=== PATIENT | male | born 1950 | race Caucasian/White ===

== ENCOUNTER → 2017-08-21 | Outpatient (CLI) | payer MEDICARE | LOC: CFH 08:06 | PROVIDERS: ATTEND Psychiatry & Neurology Neurology | DX: I67.9 Cerebrovascular disease, unspecified (principal) | CPT/HCPCS: 70551 ==

== ENCOUNTER → 2020-04-19 | Outpatient (CLI) | payer MEDICARE ==
[~2020-04-19] MED LIST: REGADENOSON 0.4 MG/5 ML SYRINGE ONE
== END | disposition home or self-care (01) ==
LOC: CFH 08:54
PROVIDERS: ATTEND Internal Medicine Cardiovascular Disease
DX: I21.09 ST elevation (STEMI) myocardial infarction involving other coronary artery of anterior wall (principal); I25.5 Ischemic cardiomyopathy; I63.9 Cerebral infarction, unspecified; I25.10 Atherosclerotic heart disease of native coronary artery without angina pectoris; I10 Essential (primary) hypertension
CPT/HCPCS: 78452; 93017; A9502; J2785

== ENCOUNTER → 2020-04-25 | Outpatient (CLI) | payer MEDICARE | END | disposition home or self-care (01) | LOC: CVU 14:43 | PROVIDERS: ATTEND Internal Medicine Cardiovascular Disease | DX: I37.1 Nonrheumatic pulmonary valve insufficiency (principal); I10 Essential (primary) hypertension; I25.10 Atherosclerotic heart disease of native coronary artery without angina pectoris; I63.9 Cerebral infarction, unspecified | CPT/HCPCS: 93306 ==

== ENCOUNTER 2020-11-22 12:12 | Outpatient (CLI) | payer MEDICARE ==
[2020-11-22 12:40] LABS: MEAN CORPUSCULAR HEMOGLOBIN 23.3 pg (27.5-34.5); MEAN CORPUSCULAR HGB CONC 31.2 g/dL (33.2-36.2); MEAN PLATELET VOLUME 7.7 fL (7.4-10.4); PLATELET COUNT 371 x10^3/uL (130-400); RED BLOOD COUNT 3.55 x10^6/uL (4.38-5.82); RED CELL DISTRIBUTION WIDTH 23.6 % (9.4-14.8)
[2020-11-22 12:47] LABS: ALANINE AMINOTRANSFERASE 23 U/L (12-78); ALBUMIN 3.7 g/dL (3.4-5.0); ANION GAP 4 mmol/L (5-15); CALCIUM 8.7 mg/dL (8.5-10.1); CHLORIDE 109 mmol/L (98-107); CREATININE 1.14 mg/dL (0.7-1.3)
[2020-11-22 12:50] LABS: ALKALINE PHOSPHATASE 72 U/L (45-117); BILIRUBIN,TOTAL 0.5 mg/dL (0.2-1.0); TOTAL PROTEIN 6.8 g/dL (6.4-8.2)
[2020-11-22 14:23] LABS: MD NO
== END 2020-11-22 23:59 | disposition home or self-care (01) ==
LOC: LAB 12:12
PROVIDERS: ATTEND Internal Medicine Cardiovascular Disease
DX: E11.65 Type 2 diabetes mellitus with hyperglycemia (principal); E11.40 Type 2 diabetes mellitus with diabetic neuropathy, unspecified; E78.2 Mixed hyperlipidemia; G40.909 Epilepsy, unspecified, not intractable, without status epilepticus; I10 Essential (primary) hypertension; I25.10 Atherosclerotic heart disease of native coronary artery without angina pectoris; F10.10 Alcohol abuse, uncomplicated; F17.200 Nicotine dependence, unspecified, uncomplicated; F17.201 Nicotine dependence, unspecified, in remission
CPT/HCPCS: 36415; 80053; 85025

== ENCOUNTER → 2020-11-28 | Outpatient (CLI) | payer MEDICARE ==
[2020-11-28 11:29] LABS: ABSOLUTE RETICS # 0.055 x10^6/uL (0.5-1.5); RED BLOOD COUNT 3.94 x10^6/uL (4.38-5.82); RETICULOCYTE COUNT % 1.4 % (0.5-1.5)
[2020-11-28 12:05] LABS: FOLATE LEVEL 13.2 ng/mL (3.1-17.5)
[2020-12-02 14:41] LABS: OCCULT BLOOD NEGATIVE (NEGATIVE)
[2020-12-02 14:51] LABS: OCCULT BLOOD NEGATIVE (NEGATIVE)
== END | disposition home or self-care (01) ==
LOC: RAD 11:02
PROVIDERS: ATTEND Internal Medicine Gastroenterology
DX: D53.9 Nutritional anemia, unspecified (principal)
CPT/HCPCS: 36415; 74018; 82272; 82607; 82668; 82728; 82746; 82784; 83516; 83540; 83550; 85045

== ENCOUNTER 2020-11-30 13:42 | Outpatient (CLI) | payer MEDICARE | END 2020-11-30 23:59 | disposition home or self-care (01) | LOC: RAD 13:42 | PROVIDERS: ATTEND Internal Medicine Gastroenterology | DX: D53.9 Nutritional anemia, unspecified (principal) | CPT/HCPCS: 74018 ==

== ENCOUNTER 2020-12-02 13:16 | Outpatient (CLI) | payer MEDICARE | END 2020-12-02 23:59 | disposition home or self-care (01) | LOC: RAD 13:16 | PROVIDERS: ATTEND Internal Medicine Gastroenterology | DX: D53.9 Nutritional anemia, unspecified (principal) | CPT/HCPCS: 74018 ==

== ENCOUNTER → 2020-12-06 | Outpatient (CLI) | payer MEDICARE | END | disposition home or self-care (01) | LOC: RAD 13:21 | PROVIDERS: ATTEND Internal Medicine Gastroenterology | DX: M47.816 Spondylosis without myelopathy or radiculopathy, lumbar region (principal); M41.86 Other forms of scoliosis, lumbar region; D53.9 Nutritional anemia, unspecified; M85.88 Other specified disorders of bone density and structure, other site | CPT/HCPCS: 74018 ==

== ENCOUNTER → 2021-01-04 | Outpatient (CLI) | payer MEDICARE ==
[2021-01-04 10:37] LABS: BASOPHILS % (AUTO) 2 % (0-1); EOSINOPHILS % (AUTO) 7 % (1-7); LYMPHOCYTES % (AUTO) 29 % (22-44); MEAN CORPUSCULAR HGB CONC 31.3 g/dL (33.2-36.2); MEAN PLATELET VOLUME 7.3 fL (7.4-10.4); MONOCYTES % (AUTO) 9 % (2-9); NEUTROPHILS % (AUTO) 52 % (42-75); PLATELET COUNT 461 x10^3/uL (130-400); RED BLOOD COUNT 5.56 x10^6/uL (4.38-5.82); RED CELL DISTRIBUTION WIDTH 36.4 % (9.4-14.8)
[2021-01-04 11:03] LABS: ANISOCYTOSIS 2+; MD MORPH REVIEW ONLY
[2021-01-04 11:04] LABS: HYPOCHROMIA 1+; MICROCYTOSIS 1+; POLYCHROMASIA 1+; SCHISTOCYTES 1+; TARGET CELLS 1+
[2021-01-04 11:05] LABS: <PLATELET ESTIMATE> INCREASED; <PLT MORPHOLOGY> NORMAL PLT MORPH; ECHINOCYTES 1+; HOWELL-JOLLY BODIES 1+; SPHEROCYTES 1+
== END | disposition home or self-care (01) ==
LOC: LAB 10:22
PROVIDERS: ATTEND Internal Medicine Gastroenterology
DX: D53.9 Nutritional anemia, unspecified (principal); D50.9 Iron deficiency anemia, unspecified
CPT/HCPCS: 36415; 82728; 83540; 83550; 85025

== ENCOUNTER 2021-03-18 06:32 | Day surgery (SDC) | payer MEDICARE ==
[~2021-03-18] VITALS: Ht 175.3 cm; Wt 85.9 kg
[2021-03-18] MEDS ORDERED: LIDOCAINE 2%, 20ML SQ PRN (07:00)
[2021-03-18] MEDS ORDERED: LIDOCAINE 2%, 20ML ONE (07:13)
== END 2021-03-18 08:46 | disposition home or self-care (01) ==
LOC: CACL 06:32
PROVIDERS: ATTEND Internal Medicine Cardiovascular Disease
DX: Z45.09 Encounter for adjustment and management of other cardiac device (principal); I63.9 Cerebral infarction, unspecified; I25.10 Atherosclerotic heart disease of native coronary artery without angina pectoris; I48.91 Unspecified atrial fibrillation; I25.2 Old myocardial infarction; I10 Essential (primary) hypertension; E11.9 Type 2 diabetes mellitus without complications; E78.2 Mixed hyperlipidemia; N28.9 Disorder of kidney and ureter, unspecified; F17.200 Nicotine dependence, unspecified, uncomplicated; Z79.01 Long term (current) use of anticoagulants; Z79.84 Long term (current) use of oral hypoglycemic drugs; Z79.899 Other long term (current) drug therapy; Z91.041 Radiographic dye allergy status
CPT/HCPCS: 33285; 33286; C1764